=== PATIENT | male | born 1960 | race Caucasian/White ===

== ENCOUNTER 2023-06-28 15:49 | Emergency (ER) | payer MEDICAID ==
[~2023-06-28] VITALS: Ht 172.7 cm; Wt 63.6 kg
[2023-06-28 16:02] VITALS: BP 124/69; PULSE 88; RESP 18; TEMP 98.3; O2SAT 95
[2023-06-28] MEDS ORDERED: IBUP-2029 MT (21:15)
[2023-06-28] MEDS ORDERED: T3 PO (21:15)
== END 2023-06-28 22:05 | disposition home or self-care (01) ==
LOC: ER 15:49
DX: G89.29 Other chronic pain (principal); M54.9 Dorsalgia, unspecified
CPT/HCPCS: 99281